=== PATIENT | female | born 1940 | race Two or more races ===

== ENCOUNTER 2020-07-08 08:15 | Inpatient (IN) | payer OTHER ==
[~2020-07-08] VITALS: Ht 152.4 cm; Wt 59.9 kg
[2020-07-08] MEDS ORDERED: VASOTEC20 MG PO (13:36)
[2020-07-08] MEDS ORDERED: PROTONIX40 MG PO (13:37)
[2020-07-08] MEDS ORDERED: PEPCID AC20 MG PO (13:37)
[2020-07-08] MEDS ORDERED: ZOCOR20 MG PO (13:37)
[2020-07-08] MEDS ORDERED: SINGULAIR10 MG PO (13:37)
[2020-07-08] MEDS ORDERED: NAPR500T14 PO (13:38)
[2020-07-08] MEDS ORDERED: NASAL MIST126 ML NASAL (14:46)
[2020-07-08] MEDS ORDERED: SYMBICORT 16010.2 GM IH (14:46)
[2020-07-17] MEDS ORDERED: XARELTO10 MG PO (06:20)
[2020-07-17] MEDS ORDERED: INTEGRA PLUS C1 EACH PO (06:20)
[2020-07-17] MEDS ORDERED: DOLOGESIC 500-1 EACH PO (06:20)
[2020-07-17] MEDS ORDERED: BACTRIM DS TAB1 EACH PO (06:20)
== END 2020-07-17 14:37 | DRG 470 ==
LOC: SURH 07-15 05:35 → O/R 07-15 05:35 → SURH 07-15 08:15 → O/R 07-15 12:05 → SURH 07-15 12:10
PROVIDERS: ADMIT Orthopaedic Surgery Sports Medicine; ATTEND Orthopaedic Surgery Sports Medicine
PROC: 0SRD0J9 Replacement of Left Knee Joint with Synthetic Substitute, Cemented, Open Approach (ICD-10-PCS; principal; 2020-07-15 08:30)
DX: M17.12 Unilateral primary osteoarthritis, left knee (principal); I10 Essential (primary) hypertension; Z87.891 Personal history of nicotine dependence

== ENCOUNTER 2021-07-17 07:45 | Inpatient (IN) | payer OTHER ==
[~2021-07-17] VITALS: Ht 152.4 cm; Wt 59.9 kg
[~2021-07-17 07:45] MED LIST: BACTRIM DS TAB1 EACH PO; DOLOGESIC 500-1 EACH PO; INTEGRA PLUS C1 EACH PO; NAPR500T14 PO; NASAL MIST126 ML NASAL; PEPCID AC20 MG PO; PROTONIX40 MG PO; SINGULAIR10 MG PO; SYMBICORT 16010.2 GM IH; VASOTEC20 MG PO; XARELTO10 MG PO; ZOCOR20 MG PO
[2021-07-21] MEDS ORDERED: NABUMETONE750 MG (10:39)
[2021-07-21] MEDS ORDERED: VITAMIN D3125 MCG (10:40)
[2021-07-21] MEDS ORDERED: VASOFLEX TABLE1 EACH (10:40)
[2021-07-21] MEDS ORDERED: METOPROLOL SUCC25 MG (10:40)
[2021-07-23] MEDS ORDERED: BACTRIM DS TAB1 EACH PO (15:12)
[2021-07-23] MEDS ORDERED: OXYC1TAB9 PO (15:12)
[2021-07-23] MEDS ORDERED: XARELTO10 MG PO (15:12)
[2021-07-23] MEDS ORDERED: INTEGRA PLUS C1 EACH PO (15:12)
== END 2021-07-25 00:31 | disposition home or self-care (01) | DRG 470 ==
LOC: SURG 07-21 05:20 → O/R 07-21 05:20 → SURH 07-21 07:45 → SURG 07-21 11:00 → SURH 07-21 11:45 → SURG 07-25 00:31
PROVIDERS: ADMIT Orthopaedic Surgery Sports Medicine; ATTEND Orthopaedic Surgery Sports Medicine
PROC: 4A12X4Z Monitoring of Cardiac Electrical Activity, External Approach (ICD-10-PCS; 2021-07-21)
PROC: 0SRC0J9 Replacement of Right Knee Joint with Synthetic Substitute, Cemented, Open Approach (ICD-10-PCS; principal; 2021-07-21 11:45)
DX: M17.11 Unilateral primary osteoarthritis, right knee (principal); I10 Essential (primary) hypertension; K21.9 Gastro-esophageal reflux disease without esophagitis; Z20.822 Contact with and (suspected) exposure to COVID-19